=== PATIENT | male | born 1975 | race Caucasian/White ===

== ENCOUNTER 2016-06-17 19:01 | Inpatient (IN) | payer MEDICAID ==
[~2016-06-17 19:01] MED LIST: BUPIVACAIN-EPI 0.25%-1:200,000 30 ML VIAL SQ ONE; LACTATED RINGERS 1,000 ML IV ONE; SODIUM CHLORIDE 0.9% 1,000 ML IV ONE
[2016-06-17] MEDS ORDERED: KETOROLAC 30 MG/ML 1 ML VIAL IVP STA (20:14)
[2016-06-17] MEDS ORDERED: SODIUM CHLORIDE 0.9% 1,000 ML IV ONE (20:14)
--- NOTE | 2016-06-17 20:17 | ED ---
Abdominal Pain HPI - General Chief Complaint: Abdominal Pain Stated Complaint: abd pain Time Seen by Provider: 06/17/16 19:32 Source: patient, RN notes reviewed Mode of arrival: ambulatory Limitations: no limitations - History of Present Illness Initial Comments: Patient is a 41-year-old male presents to the emergency room for evaluation of abdominal pain. Patient states been having pain since this morning. Patient has been having on and off adilia flashes and chills. Patient denies any known fevers. Patient did have a low-grade fever on arrival. Patient states he has been taking ibuprofen with no relief of symptoms. Patient states pain is in his right lower quadrant. Patient states pain is worse when he moves. Patient also states noticed frequency in urination over the past few days. Patient denies blood in urine. Patient denies history kidney stones. Patient states he has a history of a lap band placed. Patient denies constipation or diarrhea. Patient states he had normal bowel movement this morning. Patient denies blood in stools or dark tarry stools. Patient states she's been nauseous but denies any vomiting. Patient denies chest pain or shortness of breath. Patient states he will occasionally feel dizzy when he has an episode of pain. - Related Data Home Medications Medication Instructions Recorded Confirmed Ibuprofen [Motrin] 600 mg PO Q6HR PRN 06/17/16 06/17/16 Simethicone [Gas-X] 125 mg PO ONCE PRN 06/17/16 06/17/16 Allergies Allergy/AdvReac Type Severity Reaction Status Date / Time No Known Allergies Allergy Verified 06/17/16 20:25 Review of Systems ROS Statement: Those systems with pertinent positive or pertinent negative responses have been documented in the HPI. ROS Other: All systems not noted in ROS Statement are negative. Past Medical History Past Medical History: Osteoarthritis (OA) Additional Past Medical History / Comment(s): adhd chronic hip pain History of Any Multi-Drug Resistant Organisms: None Reported Past Surgical History: Joint Replacement, Orthopedic Surgery Additional Past Surgical History / Comment(s): shoulder x3 radial shortening, ankle Past Psychological History: ADD/ADHD, Depression Smoking Status: Current every day smoker Past Alcohol Use History: None Reported Past Drug Use History: None Reported General Exam - General Exam Comments Initial Comments: Laying in exam room, no acute distress. Limitations: no limitations General appearance: alert, in no apparent distress Head exam: Present: atraumatic, normocephalic, normal inspection Eye exam: Present: normal appearance ENT exam: Present: normal exam Neck exam: Present: normal inspection Respiratory exam: Present: normal lung sounds bilaterally. Absent: respiratory distress Cardiovascular Exam: Present: regular rate, normal rhythm, normal heart sounds GI/Abdominal exam: Present: soft, tenderness (Right lower quadrant), normal bowel sounds. Absent: distended, guarding, rebound, rigid Extremities exam: Present: normal inspection Back exam: Present: normal inspection Neurological exam: Present: alert, oriented X3, CN II-XII intact, normal gait Psychiatric exam: Present: normal affect, normal mood Skin exam: Present: warm, dry, intact, normal color. Absent: rash Course Vital Signs 06/17/16 06/17/16 06/17/16 19:10 19:43 21:35 Temperature 100.9 F H 98.5 F Pulse Rate 72 93 84 Respiratory 18 18 18 Rate Blood Pressure 114/68 136/72 147/63 O2 Sat by Pulse 96 94 L 95 Oximetry 06/17/16 06/17/16 23:11 23:36 Temperature 98 F 98.3 F Pulse Rate 84 85 Respiratory 16 18 Rate Blood Pressure 147/63 128/79 O2 Sat by Pulse 99 95 Oximetry Medical Decision Making - Medical Decision Making Patient is a 41-year-old male presents emergency room for evaluation of abdominal pain. Patient's white count elevated. CT scan suggestive of acute appendicitis. Case discussed Dr. Hutchison. Dr. Hutchison discussed case with Dr. Woo. Patient will be sent to surgery for lap appendectomy tonight. Patient started on Zosyn. Plan discussed with patient. - Lab Data Result diagrams: 06/17/16 20:20 06/17/16 20:20 Lab Results 06/17/16 06/17/16 06/17/16 Range/Units 20:10 20:20 20:20 WBC 16.7 H (3.8-10.6) k/uL RBC 4.91 (4.30-5.90) m/uL Hgb 14.5 (13.0-17.5) gm/dL Hct 44.9 (39.0-53.0) % MCV 91.4 (80.0-100.0) fL MCH 29.5 (25.0-35.0) pg MCHC 32.3 (31.0-37.0) g/dL RDW 13.7 (11.5-15.5) % Plt Count 345 (150-450) k/uL Neutrophils % 83 % Lymphocytes % 9 % Monocytes % 5 % Eosinophils % 2 % Basophils % 0 % Neutrophils # 13.8 H (1.3-7.7) k/uL Lymphocytes # 1.5 (1.0-4.8) k/uL Monocytes # 0.8 (0-1.0) k/uL Eosinophils # 0.4 (0-0.7) k/uL Basophils # 0.1 (0-0.2) k/uL Sodium 137 (137-145) mmol/L Potassium 4.5 (3.5-5.1) mmol/L Chloride 106 (98-107) mmol/L Carbon Dioxide 23 (22-30) mmol/L Anion Gap 8 mmol/L BUN 18 (9-20) mg/dL Creatinine 0.98 (0.66-1.25) mg/dL Est GFR (MDRD) Af Amer >60 (>60 ml/min/1.73 sqM) Est GFR (MDRD) Non-Af >60 (>60 ml/min/1.73 sqM) Glucose 98 (74-99) mg/dL Calcium 8.9 (8.4-10.2) mg/dL Total Bilirubin 0.7 (0.2-1.3) mg/dL AST 20 (17-59) U/L ALT 20 L (21-72) U/L Alkaline Phosphatase 100 (38-126) U/L Total Protein 7.4 (6.3-8.2) g/dL Albumin 3.9 (3.5-5.0) g/dL Amylase 59 (30-110) U/L Lipase 49 (23-300) U/L Urine Color Yellow Urine Appearance Clear (Clear) Urine pH 6.5 (5.0-8.0) Ur Specific [place] 1.023 (1.001-1.035) Urine Protein Trace H (Negative) Urine Glucose (UA) Negative (Negative) Urine Ketones Negative (Negative) Urine Blood Trace H (Negative) Urine Nitrite Negative (Negative) Urine Bilirubin Negative (Negative) Urine Urobilinogen 2.0 (<2.0) mg/dL Ur Leukocyte Esterase Negative (Negative) Urine RBC 6 H (0-5) /hpf Urine WBC <1 (0-5) /hpf Urine Bacteria Rare H (None) /hpf Urine Mucus Rare H (None) /hpf - Radiology Data Radiology results: report reviewed, image reviewed Disposition Clinical Impression: Acute appendicitis Disposition: ADMITTED IP TO THIS [facility] Condition: Stable Decision Date: 06/17/16
[2016-06-17 20:24] LABS: Appearance,Urine Clear (Clear); Bacteria,Urine Rare /hpf; Bilirubin,Urine Negative (Negative); Glucose,Urine (UA) Negative (Negative); Ketones,Urine Negative (Negative); Leukocyte Esterase,Urine Negative (Negative); Mucus,Urine Rare /hpf; Nitrite,Urine Negative (Negative); PH, Urine 6.5 (5.0-8.0); Particle Count 1350; Protein,Urine Trace (Negative); RBC,Urine 6 /hpf (0-5); Specific Gravity,Urine 1.023 (1.001-1.035); UA Billing (MACRO vs. MICRO) MICRO; WBC,Urine <1 /hpf (0-5)
[2016-06-17 20:26] LABS: Basophils # (A) 0.1 k/uL (0-0.2); Basophils % (A) 0 %; CH 30.3; CHCM 33.3; Eosinophils # (A) 0.4 k/uL (0-0.7); Eosinophils % (A) 2 %; HCT 44.9 % (39.0-53.0); HDW 2.19; HGB 14.5 gm/dL (13.0-17.5); Luc # (Auto) 0.18; Luc % (Auto) 1; Lymphocytes # (A) 1.5 k/uL (1.0-4.8); Lymphocytes % (A) 9 %; MCH 29.5 pg (25.0-35.0); MCHC 32.3 g/dL (31.0-37.0); MCV 91.4 fL (80.0-100.0); Mean Platelet Volume 6.8; Monocytes # (A) 0.8 k/uL (0-1.0); Monocytes % (A) 5 %; Neutrophils # (A) 13.8 k/uL (1.3-7.7); Neutrophils % (A) 83 %; RBC 4.91 m/uL (4.30-5.90); RDW 13.7 % (11.5-15.5); WBC 16.7 k/uL (3.8-10.6); WBC (Perox) 17.03
--- NOTE | 2016-06-17 20:47 | XR ---
EXAMINATION TYPE: XR KUB DATE OF EXAM: 06/17/2016 8:40 PM COMPARISON: NONE HISTORY: Right lower quadrant pain TECHNIQUE: 2 views FINDINGS: There is no sign of intestinal obstruction or pneumoperitoneum. Fecal pattern is normal. Th ere is a sleeve around the gastric fundus. There are no pathologic calcifications over the kidneys. L august bases are clear. IMPRESSION: Bariatric surgery. Nonacute abdomen.
[2016-06-17 20:56] LABS: ALT 20 U/L (21-72); AST 20 U/L (17-59); Alkaline Phosphatase 100 U/L (38-126); Amylase 59 U/L (30-110); Anion Gap 8 mmol/L; Blood Urea Nitrogen 18 mg/dL (9-20); Calcium 8.9 mg/dL (8.4-10.2); Carbon Dioxide 23 mmol/L (22-30); Chloride 106 mmol/L (98-107); Glucose 98 mg/dL (74-99); Non-African American GFR(MDRD) >60 (>60 ml/min/1.73 sqM); Potassium 4.5 mmol/L (3.5-5.1); Sodium 137 mmol/L (137-145); Total Bilirubin 0.7 mg/dL (0.2-1.3); Total Protein 7.4 g/dL (6.3-8.2)
[2016-06-17] MEDS ORDERED: RX INFO: IV CONTRAST WAS GIVEN 1 EACH MISC MISCELLANE PRN (21:08)
--- NOTE | 2016-06-17 21:52 | CT ---
EXAMINATION TYPE: CT abdomen pelvis w con DATE OF EXAM: 06/17/2016 9:39 PM COMPARISON: NONE HISTORY: RLQ pain with nausea. CT DLP: 1915.8 mGycm Automated exposure control for dose reduction was used. TECHNIQUE: Helical acquisition of images was performed from the lung bases through the pelvis. CONTRAST: Performed without Oral Contrast and with IV Contrast, patient injected with 100 mL of Omnipaque 300. FINDINGS: There is mild linear density at the lung bases consistent with atelectasis. There is no pleural effus ion. There is bariatric surgery noted with a sleeve around the gastric fundus. Liver spleen pancreas gallbladder appear normal. Bile ducts are not dilated. There is no adrenal mass . There is a 3 cm cortical cyst on the lateral left kidney. There is no hydronephrosis. There is no r etroperitoneal adenopathy. There is some fat stranding in the right lower quadrant. There is thickeni ng of the appendix up to 1.5 cm. There is no discrete abscess seen. I see no intestinal wall thickening. Bladder distends smoothly. There is no ascites. Bony structures are intact. IMPRESSION: THICKENED APPENDIX WITH SURROUNDING INFLAMMATORY CHANGES RELATED TO ACUTE APPENDICITIS. NO ABSCESS SE EN. PATCHY ATELECTASIS AT THE LUNG BASES.
[2016-06-17] MEDS ORDERED: HYDROmorphone 1 MG/ML 1 ML SYRINGE IV PRN (22:40)
[2016-06-17] MEDS ORDERED: KETOROLAC 30 MG/ML 1 ML VIAL IVP PRN (22:40)
[2016-06-17] MEDS ORDERED: NALOXONE 0.4 MG/ML 1 ML VIAL IV PRN (22:40)
[2016-06-17] MEDS ORDERED: ONDANSETRON 4 MG/2 ML VIAL IVP PRN (22:40)
[2016-06-17] MEDS ORDERED: PIPERACILLIN-TAZOBACTAM 3.375 GM in DEXTROSE/WATER 1 50ML.BAG IVPB STA (22:41)
[2016-06-17] MEDS: SODIUM CHLORIDE 0.9% 1,000 ML IV SCH (23:11)
--- NOTE | 2016-06-17 23:45 | P.GSHP ---
History of Present Illness H&P Date: 06/17/16 Chief Complaint: Acute appendicitis 41 years old male presents with 1 day history of right lower quadrant pain starting this a.m. He reports loss of appetite. No nausea or vomiting. No fever, chills or rigors. Prior history of lap band placement. No recent adjustments. - Review of Systems Comment: HEENT: No difficulty in vision or hearing. Denies dysphagia. Cardiovascular: Denies chest pain, palpitations, dizziness, shortness of breath. Respiratory: No cough, SOB Genitourinary: No urinary incontinence, hematuria or dysuria Neurologic: No seizures, denies weakness in upper or lower extremities Past Medical History Past Medical History: Osteoarthritis (OA) Additional Past Medical History / Comment(s): adhd chronic hip pain History of Any Multi-Drug Resistant Organisms: None Reported Past Surgical History: Joint Replacement, Orthopedic Surgery Additional Past Surgical History / Comment(s): shoulder x3 radial shortening, ankle Past Psychological History: ADD/ADHD, Depression Smoking Status: Current every day smoker Past Alcohol Use History: None Reported Past Drug Use History: None Reported Medications and Allergies Home Medications Medication Instructions Recorded Confirmed Type Ibuprofen [Motrin] 600 mg PO Q6HR PRN 06/17/16 06/17/16 History Simethicone [Gas-X] 125 mg PO ONCE PRN 06/17/16 06/17/16 History Allergies Allergy/AdvReac Type Severity Reaction Status Date / Time No Known Allergies Allergy Verified 06/17/16 20:25 Surgical - Exam Vital Signs Temp Pulse Resp BP Pulse Ox 100.9 F H 72 18 114/68 96 06/17/16 19:10 06/17/16 19:10 06/17/16 19:10 06/17/16 19:10 06/17/16 19:10 General: Patient is alert and oriented to time, place and person and cooperative with exam. HEENT: No pallor, no icterus Chest: Bilateral equal breath sounds present. No wheezes, no crackles. Cardiovascular: Regular rate and rhythm. Abdomen: RLQ tenderness Integumentary: No active ulcers or discharge. Neurologic: Cranial nerves II-XII intact. Strength upper and lower extremities 5/5. No focal neurologic deficits. Psychiatric: No anxiety or psychosis. No suicidal thoughts. Results - Labs 06/17/16 20:20 06/17/16 20:20 Abnormal Lab Results - Last 24 Hours (Table) 06/17/16 06/17/16 06/17/16 Range/Units 20:10 20:20 20:20 WBC 16.7 H (3.8-10.6) k/uL Neutrophils # 13.8 H (1.3-7.7) k/uL ALT 20 L (21-72) U/L Urine Protein Trace H (Negative) Urine Blood Trace H (Negative) Urine RBC 6 H (0-5) /hpf Urine Bacteria Rare H (None) /hpf Urine Mucus Rare H (None) /hpf Diabetes panel 06/17/16 Range/Units 20:20 Sodium 137 (137-145) mmol/L Potassium 4.5 (3.5-5.1) mmol/L Chloride 106 (98-107) mmol/L Carbon Dioxide 23 (22-30) mmol/L BUN 18 (9-20) mg/dL Creatinine 0.98 (0.66-1.25) mg/dL Glucose 98 (74-99) mg/dL Calcium 8.9 (8.4-10.2) mg/dL AST 20 (17-59) U/L ALT 20 L (21-72) U/L Alkaline Phosphatase 100 (38-126) U/L Total Protein 7.4 (6.3-8.2) g/dL Albumin 3.9 (3.5-5.0) g/dL Calcium panel 06/17/16 Range/Units 20:20 Calcium 8.9 (8.4-10.2) mg/dL Albumin 3.9 (3.5-5.0) g/dL Pituitary panel 06/17/16 Range/Units 20:20 Sodium 137 (137-145) mmol/L Potassium 4.5 (3.5-5.1) mmol/L Chloride 106 (98-107) mmol/L Carbon Dioxide 23 (22-30) mmol/L BUN 18 (9-20) mg/dL Creatinine 0.98 (0.66-1.25) mg/dL Glucose 98 (74-99) mg/dL Calcium 8.9 (8.4-10.2) mg/dL Adrenal panel 06/17/16 Range/Units 20:20 Sodium 137 (137-145) mmol/L Potassium 4.5 (3.5-5.1) mmol/L Chloride 106 (98-107) mmol/L Carbon Dioxide 23 (22-30) mmol/L BUN 18 (9-20) mg/dL Creatinine 0.98 (0.66-1.25) mg/dL Glucose 98 (74-99) mg/dL Calcium 8.9 (8.4-10.2) mg/dL Total Bilirubin 0.7 (0.2-1.3) mg/dL AST 20 (17-59) U/L ALT 20 L (21-72) U/L Alkaline Phosphatase 100 (38-126) U/L Total Protein 7.4 (6.3-8.2) g/dL Albumin 3.9 (3.5-5.0) g/dL - Imaging CT scan - abdomen: other (Acute appendicitis) Assessment and Plan (1) History of laparoscopic adjustable gastric banding Status: Acute (2) Acute appendicitis Status: Acute (3) ADD (attention deficit disorder) Status: Acute Plan: 41 years old male presents with acute onset of right lower quadrant pain with leukocytosis and CT findings suggestive of acute appendicitis. Informed consent obtained and patient elected to undergo laparoscopic appendectomy possible open. The risks, benefits and potential complications explained including bleeding, infection, possible bowel resection and conversion to open. Patient has a lap band in place and there is is a higher chance of lap band infection which may need removal in future. Patient demonstrated understanding. He was examined in the ER and plan discussed with patient. IV antibiotics, bilateral SCDs, heparin 5000 units subcu tissues injectionx1
[2016-06-17] MEDS ORDERED: DEXAMETHASONE SOD PHOS (MDV) 100 MG/10 ML VIAL ONE (23:57)
[2016-06-17] MEDS ORDERED: ONDANSETRON 4 MG/2 ML VIAL ONE (23:57)
[2016-06-17] MEDS ORDERED: MIDAZOLAM 2 MG/2 ML VIAL ONE (23:57)
[2016-06-17] MEDS ORDERED: ROCURONIUM BROMIDE 10 MG/ML 10 ML VIAL IV ONE (23:57)
[2016-06-17] MEDS ORDERED: LIDOCAINE 1% INJ 10MG/ML (20 ML MDV) ONE (23:57)
[2016-06-17] MEDS ORDERED: PROPOFOL 10 MG/ML 20 ML VIAL IV ONE (23:57)
[2016-06-17] MEDS ORDERED: KETOROLAC 30 MG/ML 1 ML VIAL ONE (23:57)
[2016-06-17] MEDS ORDERED: fentaNYL (PF) 50 MCG/ML 2 ML AMP ONE (23:57)
[2016-06-17] MEDS ORDERED: SUCCINYLCHOLINE CHLORIDE 100 MG/5 ML SYR IV ONE (23:57)
[2016-06-17] MEDS ORDERED: GLYCOPYRROLATE 0.2 MG/ML 2 ML VIAL ONE (23:57)
[2016-06-17] MEDS ORDERED: NEOSTIGMINE 1 MG/ML 10 ML VIAL ONE (23:57)
--- NOTE | 2016-06-18 01:03 | P.OP ---
Date of Procedure: 06/18/16 Preoperative Diagnosis: Acute appendicitis Obesity BMI 35.4 History of lap band placement Postoperative Diagnosis: Same Procedure(s) Performed: Laparoscopic appendectomy Anesthesia: GLADYSA, local Surgeon: Naheed Woo Estimated Blood Loss (ml): 5 Condition: stable Disposition: PACU Indications for Procedure: 41 years old male presents with one-day history of right lower quadrant pain. Computed tomography scan shows acute appendicitis. WBC count 16,000. Informed consent obtained and patient elected to undergo laparoscopic appendectomy possible open Description of Procedure: The patient was brought to the operating room and placed in supine position with left arm tucked and a footboard was placed. General anesthesia with endotracheal intubation was performed as per anesthesia team. A Hernandez catheter was inserted under sterile aseptic precautions. Chlorhexidine was used to prep the abdomen followed by application of sterile drapes. A timeout was performed to verify correct patient and correct procedure. Patient was confirmed to receive perioperative IV antibiotics, subcutaneous heparin for VTE prophylaxis and bilateral SCDs were placed. A 5 mm skin incision was made in the left anterior axillary line and a Veress needle was inserted into the peritoneal cavity and CO2 insufflated to a pressure of 15 mmHg. A 5 mm Optiview trocar was loaded on a 5 mm 30 laparoscope and peritoneal cavity was entered under direct vision. An additional 5 mm trocar was placed in the suprapubic location in midline and a 12 mm trocar in the supraumbilical location. Patient was placed in Trendelenburg with right side up. The lap band was covered in omentum. The appendix was identified. It appeared enlarged and inflamed There were fibrinopurulent exudates in the right lower quadrant. The appendix was grasped using a laparoscopic Kendra instrument. A suction irrigation device was used to gently dissecting appendix from the surrounding tissue. All the fibrinous exudates were removed. A window was made in the mesoappendix close to the cecal base using a [place] dissector. Laparoscopic Ligasure was used to divide the mesoappendix. No bleeding noted from the mesoappendiceal stump. The appendix was divided at its base, at the confluence of three tenia using Ethicon stapler 45 blue load. The staple line was intact without evidence of bleeding. The appendix was placed in an endocatch bag and was retrieved through the supraumbilical port site. All the trocar sites were examined and no evidence of bleeding. The 12 mm trocar site was closed using three transfascial sutures of 0 Vicryl which were placed using a Ampere device. Local anesthetic was infiltrated along all the ports sites. The sponge, instrument and needle count were correct x2. CO2 gas was evacuated and trocars were removed. 4-0 Monocryl was used to close the skin incisions followed by Dermabond skin glue. Hernandez catheter was discontinued. Patient tolerated the procedure well and was taken to post anesthesia care unit in stable condition.
[2016-06-18 02:12] VITALS: TEMP 98.3; BMI 35.4
[2016-06-18 07:19] LABS: Basophils % (A) 0 %; CH 29.7; CHCM 32.3; Eosinophils % (A) 0 %; HCT 41.6 % (39.0-53.0); HDW 2.17; HGB 13.6 gm/dL (13.0-17.5); Luc # (Auto) 0.06; Luc % (Auto) 0; Lymphocytes # (A) 0.8 k/uL (1.0-4.8); Lymphocytes % (A) 5 %; MCH 30.2 pg (25.0-35.0); MCHC 32.7 g/dL (31.0-37.0); MCV 92.4 fL (80.0-100.0); Mean Platelet Volume 6.8; Monocytes # (A) 0.2 k/uL (0-1.0); Monocytes % (A) 1 %; Neutrophils # (A) 15.5 k/uL (1.3-7.7); Neutrophils % (A) 94 %; RDW 13.5 % (11.5-15.5); WBC 16.5 k/uL (3.8-10.6); WBC (Perox) 17.26
[2016-06-18] MEDS ORDERED: HEPARIN SODIUM,PORCINE 5,000 UNIT/ML 1 ML VIAL SQ SCH (08:00)
[2016-06-18] MEDS ORDERED: PIPERACILLIN-TAZOBACTAM 3.375 GM in DEXTROSE/WATER 1 50ML.BAG IVPB SCH (08:00)
[2016-06-18 08:15] VITALS: BP 122/65; PULSE 89; RESP 16
[2016-06-18] MEDS ORDERED: NICOTINE 21MG/24HR PATCH TRANSDERM SCH (09:00)
[2016-06-18] MEDS: SODIUM CHLORIDE 0.9% 1,000 ML IV SCH (09:48)
--- NOTE | 2016-06-18 11:44 | P.DS ---
Providers Date of admission: 06/17/16 22:42 Expected date of discharge: 06/18/16 Attending physician: Naheed Woo Primary care physician: Stated None Hospital Course: 41 years old male presents with 1 day history of right lower quadrant pain starting this a.m. He reports loss of appetite. No nausea or vomiting. No fever, chills or rigors. Prior history of lap band placement. No recent adjustments. The surgeon to discuss with the patient the surgical option patient elected to undergo Laparoscopic appendectomy done on June 18 Postop the patient tolerated a diet there were no postop complications patient was felt to be hemodynamically stable and appropriate to proceed with a discharge to home Impression discharge diagnosis Present on admission right lower quadrant pain likely due to acute appendicitis Obesity BMI 35 Postop laparoscopic appendectomy done on June 17 History of a prior lap band placement for morbid obesity The above dictated assessment and findings were discussed with dr tom Felix and the plan of care have been dictated as directed. [place] Hooper nurse practitioner acting as a scribe for dr glynn Patient Condition at Discharge: Stable Plan - Discharge Summary Discharge Medication List Ibuprofen [Motrin] 600 mg PO Q6HR PRN 06/17/16 [History] Simethicone [Gas-X] 125 mg PO ONCE PRN 06/17/16 [History] Follow up Appointment(s)/Referral(s): None,Stated [Primary Care Provider] - 1-2 days Naheed Woo MD [STAFF PHYSICIAN] - 06/25/16 Activity/Diet/Wound Care/Special Instructions: Patient may return to work after being seen in the surgeon's office and a follow -up visit May shower No lifting over 4 pounds Discharge Disposition: HOME SELF-CARE
[2016-06-18] MEDS ORDERED: IBUPROFEN 600 MG TAB PO STA (12:40)
== END 2016-06-18 14:27 | disposition home or self-care (01) | DRG 343 ==
LOC: EC 19:01 → 3SUR 22:42 → EC 23:39
PROVIDERS: ADMIT Surgery; ATTEND Surgery
PROC: 0DTJ4ZZ Resection of Appendix, Percutaneous Endoscopic Approach (ICD-10-PCS; principal; 2016-06-17 23:25)
DX: K35.80 Unspecified acute appendicitis (principal); F32.9 Major depressive disorder, single episode, unspecified; D72.829 Elevated white blood cell count, unspecified; R42 Dizziness and giddiness; M19.90 Unspecified osteoarthritis, unspecified site; G89.29 Other chronic pain; R35.0 Frequency of micturition; M25.559 Pain in unspecified hip; F17.200 Nicotine dependence, unspecified, uncomplicated; E66.9 Obesity, unspecified; F90.9 Attention-deficit hyperactivity disorder, unspecified type; Z68.35 Body mass index [BMI] 35.0-35.9, adult; Z98.84 Bariatric surgery status
CPT/HCPCS: 36415; 74000; 74177; 80053; 81001; 82150; 83690; 85025; 88304; 96361; 96365; 96375; 99285

== ENCOUNTER 2016-08-14 10:52 | Emergency (ER) | payer MEDICAID ==
[2016-08-14 11:05] VITALS: RESP 16; TEMP 98.9
--- NOTE | 2016-08-14 11:29 | ED ---
General Adult HPI - General Chief complaint: Extremity Injury, Upper Stated complaint: left elbow swelling Time Seen by Provider: 08/14/16 11:23 Source: patient, RN notes reviewed Mode of arrival: ambulatory Limitations: no limitations - History of Present Illness Initial comments: Patient is a pleasant 41-year-old male presenting to the emergency Department with left elbow pain. Incident occurred 2 days ago. Patient excellently struck his left elbow on a wall. Patient has had some swelling. Patient does have some discomfort that does increase with movement. Patient did have similar symptoms previously and needed to have elbow drained. Patient points at the left bursa. No other area of injury or concern. Tetanus immunization is up-to-date. - Related Data Home Medications Medication Instructions Recorded Confirmed Dextroamphetamine/Amphetamine 40 mg PO QAM 08/14/16 08/14/16 [Adderall Xr] fluvoxaMINE [Luvox] 300 mg PO DAILY 08/14/16 08/14/16 Allergies Allergy/AdvReac Type Severity Reaction Status Date / Time No Known Allergies Allergy Verified 08/14/16 11:23 Review of Systems ROS Statement: Those systems with pertinent positive or pertinent negative responses have been documented in the HPI. ROS Other: All systems not noted in ROS Statement are negative. Constitutional: Denies: fever Eyes: Denies: eye pain ENT: Denies: ear pain Respiratory: Denies: cough Cardiovascular: Denies: chest pain Endocrine: Denies: fatigue Gastrointestinal: Denies: abdominal pain Genitourinary: Denies: dysuria Musculoskeletal: Denies: back pain Skin: Denies: rash Neurological: Denies: weakness Past Medical History Past Medical History: Osteoarthritis (OA) Additional Past Medical History / Comment(s): adhd chronic hip pain History of Any Multi-Drug Resistant Organisms: None Reported Past Surgical History: Joint Replacement, Orthopedic Surgery Additional Past Surgical History / Comment(s): shoulder x3 radial shortening, ankle Past Psychological History: ADD/ADHD, Depression Smoking Status: Current every day smoker Past Alcohol Use History: None Reported Past Drug Use History: None Reported General Exam Limitations: no limitations General appearance: alert, in no apparent distress Head exam: Present: atraumatic Respiratory exam: Present: normal lung sounds bilaterally Cardiovascular Exam: Present: regular rate, normal rhythm GI/Abdominal exam: Present: soft. Absent: tenderness Extremities exam: Present: tenderness (Mild bony tenderness left elbow.), other (There is a prominent left bursa pad on the left with not much tenderness. Minimal swelling. ) Neurological exam: Present: alert Psychiatric exam: Present: normal affect, normal mood Skin exam: Present: abrasion (Mild abrasion left posterior) Course Vital Signs 08/14/16 11:01 Temperature 98.9 F Pulse Rate 101 H Respiratory 16 Rate Blood Pressure 155/86 O2 Sat by Pulse 97 Oximetry Medical Decision Making - Medical Decision Making Patient reevaluated and updated. - Radiology Data Radiology results: image reviewed (Left elbow x-ray shows mild swelling at the olecranon soft tissue) Disposition Clinical Impression: Olecranon bursitis Disposition: HOME SELF-CARE Condition: Stable Instructions: Elbow Bursitis (ED) Additional Instructions: Keep elbow wrapped, ice to affected area, [id number] Motrin as needed. Follow-up with orthopedics. Return for increased pain, swelling, redness, fever , worsening symptoms or other concerns. Referrals: Josue Collazo MD [STAFF PHYSICIAN] - 1-2 days Mike Jesus III, MD [STAFF PHYSICIAN] - 1-2 days Time of Disposition: 12:08
--- NOTE | 2016-08-14 11:49 | XR ---
EXAMINATION TYPE: XR elbow complete LT DATE OF EXAM: 08/14/2016 COMPARISON: NONE HISTORY: 41-year-old male with pain and swelling after elbow injury. TECHNIQUE: 3 views FINDINGS: There is soft tissue swelling overlying the olecranon process. No elbow joint effusion or acute fract ure or dislocation seen. IMPRESSION: Olecranon soft tissue swelling. No acute osseous abnormality seen.
[2016-08-14 12:27] VITALS: BP 157/100; PULSE 86
== END 2016-08-14 12:26 | disposition home or self-care (01) ==
LOC: EC 10:52
DX: M70.22 Olecranon bursitis, left elbow (principal); F90.9 Attention-deficit hyperactivity disorder, unspecified type; F32.9 Major depressive disorder, single episode, unspecified; F17.200 Nicotine dependence, unspecified, uncomplicated; Z79.899 Other long term (current) drug therapy; W22.01XA Walked into wall, initial encounter; Y93.89 Activity, other specified
CPT/HCPCS: 99283

== ENCOUNTER → 2018-05-26 | Outpatient (CLI) | payer BC ==
[2018-05-26 12:44] LABS: Basophils # (A) 0.1 k/uL (0-0.2); Basophils % (A) 1 %; Eosinophils # (A) 0.2 k/uL (0-0.7); Eosinophils % (A) 2 %; HGB 14.3 gm/dL (13.0-17.5); Lymphocytes # (A) 2.1 k/uL (1.0-4.8); Lymphocytes % (A) 18 %; MCH 28.7 pg (25.0-35.0); MCHC 32.5 g/dL (31.0-37.0); MCV 88.3 fL (80.0-100.0); Mean Platelet Volume 6.9; Monocytes # (A) 0.5 k/uL (0-1.0); Monocytes % (A) 4 %; Neutrophils # (A) 8.7 k/uL (1.3-7.7); Neutrophils % (A) 74 %; Platelet Count 503 k/uL (150-450); RBC 4.98 m/uL (4.30-5.90); RDW 13.8 % (11.5-15.5); WBC 11.8 k/uL (3.8-10.6)
[2018-05-26 13:15] LABS: Potassium 4.6 mmol/L (3.5-5.1)
== END ==
LOC: LABPAT 11:43
PROVIDERS: ATTEND Orthopaedic Surgery
DX: Z01.818 Encounter for other preprocedural examination (principal); Z01.812 Encounter for preprocedural laboratory examination; M75.41 Impingement syndrome of right shoulder
CPT/HCPCS: 36415; 80051; 85025; 93005

== ENCOUNTER 2018-06-15 07:32 | Day surgery (SDC) | payer BC, MEDICAID ==
[2018-06-13 12:21] VITALS: BMI 37.0
--- NOTE | 2018-06-14 13:45 | HP ---
HISTORY AND PHYSICAL Surgery is 06/15/2018. Skip Patiño is a 43-year-old patient seen with progressive right shoulder pain. Treatment options were discussed with him. He elected to proceed with arthroscopy. Consent regarding the procedure was obtained. PAST MEDICAL HISTORY: His past medical history is attention deficit disorder. PAST SURGICAL HISTORY: Ankle surgery, appendectomy, gastric bypass surgery, shoulder arthroscopy. DAILY MEDICATIONS: Adderall. ALLERGIES: None. SOCIAL HISTORY: Denies current tobacco use. PHYSICAL EXAMINATION: Physical evaluation of the right shoulder: Flexion 40 degrees, abduction 30 degrees, external rotation is 50 degrees with pain and weakness. Tenderness along the anterior lateral acromion and rotator cuff insertion site. Impingement sign positive at 90 degrees. Drop-arm sign positive. Distal neurovascular exam is intact. Right shoulder radiographs revealed a type 2 anterior acromion, acromioclavicular joint osteoarthritis. There is evidence for metallic within the humeral head. IMPRESSION: 1. Right shoulder impingement with probable rotator cuff tear. 2. Right shoulder acromioclavicular joint osteoarthritis. PLAN: Right shoulder arthroscopy with subacromial decompression, possible arthroscopic rotator cuff repair, probable Omega procedure and debridement. MMODL / IJN: [id number] /
[~2018-06-15 07:32] MED LIST changes: -BUPIVACAIN-EPI 0.25%-1:200,000 30 ML VIAL SQ ONE; +DEXAMETHASONE SOD PHOSPHATE 10 MG/ML 1 ML VIAL IV ONE; +HYDROmorphone 0.5 MG/0.5 ML SYRINGE IVP PRN; -LACTATED RINGERS 1,000 ML IV ONE; +LIDOCAINE 1% 20 ML VIAL (10MG/ML) FOR IV START INTRADERMA PRN; +MIDAZOLAM (PF) 2 MG/2 ML VIAL IV PRN; +ONDANSETRON 4 MG/2 ML VIAL IVP ONE; +SCOPOLAMINE 1.5MG/72HR PATCH TRANSDERM ONE; -SODIUM CHLORIDE 0.9% 1,000 ML IV ONE
[2018-06-15] MEDS ORDERED: fentaNYL (PF) 50 MCG/ML 2 ML AMP IVP ONE (08:15)
[2018-06-15] MEDS: LACTATED RINGERS 1,000 ML IV SCH ×2 (08:31→09:20)
--- NOTE | 2018-06-15 09:02 | P.ONQ ---
Anesthesiology Proc Note - PNB - Peripheral Nerve Block Performed Right Interscalene Single Time Out Performed: Yes Procedure Start Time: 08:15 Indication: Acute Post-Operative Pain Specifically requested for management of pain by DrSandra: Bin Russell Sedation Type: Sedate with meaningful contact maintained Preparation: Sterile Prep Position: Supine Catheter: None Needle Types: Other (see comment) (PAJUNK) Needle Size: 50mm (2") Needle Gauge: 21 Technique: Ultrasound Injectate: 0.5% Ropivacaine (see comment for volume) (20) Blood Aspirated: No Pain Paresthesia on Injection Noted: No Resistance on Injection: Normal Events: Uneventful and Well Tolerated
[2018-06-15] MEDS ORDERED: LIDOCAINE 2%-EPI 1:100,000 20 ML VIAL ONE (09:21)
[2018-06-15] MEDS ORDERED: HYDROmorphone (PF) 1 MG/ML ONE (09:21)
[2018-06-15] MEDS ORDERED: fentaNYL (PF) 50 MCG/ML 2 ML AMP ONE (09:21)
[2018-06-15] MEDS ORDERED: MIDAZOLAM 2 MG/2 ML VIAL ONE (09:21)
[2018-06-15] MEDS ORDERED: GLYCOPYRROLATE 0.2 MG/ML 2 ML VIAL ONE (09:21)
[2018-06-15] MEDS ORDERED: ROCURONIUM BROMIDE 10 MG/ML 10 ML VIAL IV ONE (09:21)
[2018-06-15] MEDS ORDERED: NEOSTIGMINE 1 MG/ML 10 ML VIAL ONE (09:21)
[2018-06-15] MEDS: ceFAZolin IN SWFI 2 GM/20 ML SYRINGE IVP ONE ×2 (09:21→09:45)
[2018-06-15] MEDS ORDERED: ePHEDrine SULFATE/0.9% NACL/PF 50 MG/5 ML SYRINGE IV ONE (09:21)
[2018-06-15] MEDS ORDERED: SUCCINYLCHOLINE CHLORIDE 100 MG/5 ML SYR IV ONE (09:21)
[2018-06-15] MEDS ORDERED: PROPOFOL 10 MG/ML 20 ML VIAL IV ONE (09:21)
[2018-06-15] MEDS ORDERED: ROPIVACAINE 5 MG/ML 30 ML VIAL ONE (09:21)
[2018-06-15] MEDS ORDERED: LACTATED RINGERS 1,000 ML IV ONE ×3 (10:10→11:12)
--- NOTE | 2018-06-15 11:25 | P.OP ---
Date of Procedure: 06/15/18 Preoperative Diagnosis: Right shoulder impingement Postoperative Diagnosis: 1. Right shoulder rotator cuff tear 2. Right shoulder impingement 3. Right shoulder acromioclavicular joint osteoarthritis 4. Right shoulder partial long head biceps tendon tear 5. Right shoulder superficial labral tear Procedure(s) Performed: 1. Right shoulder arthroscopic rotator cuff repair 2. Right shoulder arthroscopic subacromial decompression 3. Right shoulder arthroscopic Omega procedure 4. Right shoulder arthroscopic biceps tenotomy 5. Right shoulder arthroscopic debridement labral tear Implants: 4Arthrex swivel lock anchors Anesthesia: GETA, regional (Interscalene block) Surgeon: Bin Russell Pipeline Superintendent #1: Khurram Coley Estimated Blood Loss (ml): 9 Pathology: none sent Condition: stable Disposition: PACU Indications for Procedure: 43-year-old patient seen with progressive right shoulder pain. After having treatment options discussed, he elected to proceed with arthroscopy. Operative Findings: See description of procedure Description of Procedure: Patient underwent an interscalene block by department of anesthesia for postoperative pain management. The patient was then taken to the operative suite. The patient underwent a general anesthetic by the department of anesthesia. The patient was placed into a lateral position and secured. There was appropriate padding of the bony prominence. Right shoulder was then prepped and draped in normal sterile orthopedic fashion. We placed the extremity in 10 pounds of longitudinal traction. A posterior incision was now made for a posterior working portal site. The trocar and cannula were inserted into the glenohumeral joint. Arthroscopy was initiated. Spinal needle was now inserted anteriorly, to ascertain the anterior working portal site. An incision was now made in that area, a trocar was inserted followed by a probe. There was superficial tearing of the superior labrum. There was hyperemia and partial tearing long head biceps tendon. There were grade 1 chondromalacia changes of the anterior portion of the glenoid fossa. There was an obvious rotator cuff tear we could visualize from glenohumeral side. I performed an arthroscopic biceps tenotomy. I debrided the superficial labral tear down to stable tissue. The residual labrum was found to be stable. Instruments were now removed from the glenohumeral joint. Utilizing the posterior working portal site, the trocar and cannula were inserted into the subacromial space. Arthroscopy initiated. I made an incision 2 fingerbreadths lateral to the acromion. I introduced my trocar followed by my ArthroCare ablator. I now began ablating thick subacromial bursal tissue, which exposed the undersurface of the anterior acromion. There was diminished subacromial space. There was a very prominent anterior acromion. A motorized bur was introduced and a subacromial decompression was performed. I also excised some osteophytes off the inferior aspect of the distal clavicle. The AC joint was visualized and noted to be fairly arthritic. The motorized bur was introduced in the anterior portal site and a Omega procedure was performed without difficulty, decompressing the AC joint nicely. I turned my attention to the rotator cuff. There was a 2.5 cm rotator cuff tear. I debrided the margins getting down to stable tendon tissue. I introduced my motorized bur and abraded the footprint area, getting some petechial bleeding. I now made an accessory portal site off the lateral aspect of the acromion. I punched [] holes medial f or medial row fixation with the assistance of Danny VALLES carefully tapping the punch with a mallet as I held the punch and the camera. I now introduced both anchors into the pre-punched holes and Danny VALLES tapped them with the mallet as I held anchors and the camera. Danny VALLES now screwed the anchors in place a while I held the anchor guide and camera. All 8 limbs of suture were now passed through good bites of rotator cuff tendon. I now punched 2 holes for lateral row fixation again I held the punch and camera while Danny VALLES used a mallet to tap in the punch. We now passed sutures through both anchors and individually I introduced the anchors into the pre-punch holes I held the anchor guide in position with one hand holding the camera with the other hand while Danny VALLES tensioned the sutures and screwed in the anchors one at a time. All residual suture limbs were now clipped. We had good compression of the tendon along the entire footprint. I injected 1 mL Renue intra-articular. Instruments now removed from the portal sites. All portal sites were approximated with nylon suture. Sterile dressings were applied followed by a shoulder immobilizer. Khurram VALLES assisted in this complex case. The patient was awakened, transferred to a bed, and taken to recovery in stable condition.
[2018-06-15 11:29] VITALS: TEMP 97.2
[2018-06-15] MEDS ORDERED: MEPERIDINE 50 MG/ML SYRINGE IVP ONE (11:33)
[2018-06-15 12:19] VITALS: BP 150/96; PULSE 93; RESP 18
== END 2018-06-15 13:14 | disposition home or self-care (01) ==
LOC: OR 07:32
PROVIDERS: ATTEND Orthopaedic Surgery
DX: M75.101 Unspecified rotator cuff tear or rupture of right shoulder, not specified as traumatic (principal); M75.41 Impingement syndrome of right shoulder; M19.011 Primary osteoarthritis, right shoulder; S46.111A Strain of muscle, fascia and tendon of long head of biceps, right arm, initial encounter; S43.431A Superior glenoid labrum lesion of right shoulder, initial encounter; X58.XXXA Exposure to other specified factors, initial encounter; M94.211 Chondromalacia, right shoulder; M25.711 Osteophyte, right shoulder; Z98.890 Other specified postprocedural states; F98.8 Other specified behavioral and emotional disorders with onset usually occurring in childhood and adolescence; Z98.84 Bariatric surgery status; Z87.891 Personal history of nicotine dependence; F39 Unspecified mood [affective] disorder; K21.9 Gastro-esophageal reflux disease without esophagitis; Z79.899 Other long term (current) drug therapy
CPT/HCPCS: 64415; 29826; 29827; 29824; C1713 ×2; C1765; J2250 ×2; J1100; J2710; J2175; J2405; J3010; J1170; J2795; J0330; J2704; J0690

== ENCOUNTER 2020-12-30 07:37 | Emergency (ER) | payer BC, OTHER ==
[2020-12-30 07:48] VITALS: BP 162/99; PULSE 62; RESP 18; TEMP 98
[2020-12-30] MEDS ORDERED: KETOROLAC 15 MG/ML 1 ML VIAL IM STA (08:10)
--- NOTE | 2020-12-30 08:14 | ED ---
General Adult HPI - General Chief complaint: Back Pain/Injury Stated complaint: back pain Time Seen by Provider: 12/30/20 07:50 Source: patient, old records reviewed Mode of arrival: ambulatory Limitations: no limitations - History of Present Illness Initial comments: 45-year-old male presents to the emergency room for mid back pain. Patient states he has had mid back pain for 5 days now. Patient reports he has had this pain several times before. States it comes every few years. Patient states that he usually gets a Toradol shot and it helps significantly. Patient denies any chest pain. States this pain feels exactly the same to previous exacerbations. Patient states movement worsens the pain.Patient has no other complaints at this time including shortness of breath, chest pain, abdominal pain, nausea or vomiting, headache, or visual changes. - Related Data Home Medications Medication Instructions Recorded Confirmed Dextroamphetamine/Amphetamine 60 mg PO QAM 08/14/16 06/15/18 [Adderall Xr] fluvoxaMINE [Luvox] 300 mg PO DAILY 08/14/16 06/15/18 Previous Rx's Medication Instructions Recorded HYDROcodone/APAP 7.5-325MG [[place] 1 - 2 each PO Q6HR PRN #40 tab 06/15/18 7.5] Cyclobenzaprine [Flexeril] 10 mg PO TID #14 tab 12/30/20 Allergies Allergy/AdvReac Type Severity Reaction Status Date / Time No Known Allergies Allergy Verified 12/30/20 07:44 Review of Systems ROS Statement: Those systems with pertinent positive or pertinent negative responses have been documented in the HPI. ROS Other: All systems not noted in ROS Statement are negative. Past Medical History Past Medical History: Osteoarthritis (OA) Additional Past Medical History / Comment(s): adhd chronic hip pain , back pain History of Any Multi-Drug Resistant Organisms: None Reported Past Surgical History: Appendectomy, Joint Replacement, Orthopedic Surgery Additional Past Surgical History / Comment(s): shoulder x4 radial shortening, ankle Past Psychological History: ADD/ADHD, Depression Smoking Status: Never smoker Past Alcohol Use History: None Reported Past Drug Use History: Marijuana General Exam Limitations: no limitations General appearance: alert, in no apparent distress Head exam: Present: atraumatic Eye exam: Present: normal appearance, PERRL, EOMI. Absent: scleral icterus, conjunctival injection ENT exam: Present: normal exam, mucous membranes moist Neck exam: Present: normal inspection, full ROM. Absent: tenderness Respiratory exam: Present: normal lung sounds bilaterally. Absent: respiratory distress, wheezes Cardiovascular Exam: Present: regular rate, normal rhythm, normal heart sounds GI/Abdominal exam: Present: soft, normal bowel sounds. Absent: distended, ten derness Extremities exam: Present: normal capillary refill (Radial pulse 2+ in upper extremities bilaterally) Back exam: Present: paraspinal tenderness (Lower thoracic and upper lumbar paraspinal tenderness). Absent: vertebral tenderness Neurological exam: Present: alert Course Vital Signs 12/30/20 07:44 Temperature 98 F Pulse Rate 62 Respiratory 18 Rate Blood Pressure 162/99 O2 Sat by Pulse 99 Oximetry Medical Decision Making - Medical Decision Making Nose are stable. Patient is well-appearing. He does have some mild paraspinal tenderness. Pain is worsened with movement. However given pain is in the mid back I did recommend further workup the CAT scan. However patient states he has had this pain before. States he does not want to pay for any extra treatment and does not feel this is necessary. States he just wants a Toradol shot. Patient was given this. He was prescribed Flexeril as well. He will follow up with his doctor. He will return here for any worsening symptoms. Disposition Clinical Impression: Back pain Disposition: HOME SELF-CARE Condition: Good Instructions (If sedation given, give patient instructions): Acute Low Back Pain (ED) Additional Instructions: Take Motrin and Tylenol for pain. Take Flexeril as needed but do not drive while taking this. Follow-up with your doctor or orthopedics. Return to the emergency room for any worsening symptoms. Prescriptions: Cyclobenzaprine [Flexeril] 10 mg PO TID #14 tab Is patient prescribed a controlled substance at d/c from ED?: No Referrals: Nonstaff,Physician [Primary Care Provider] - 1-2 days Jose Alejandro Perea MD [STAFF PHYSICIAN] - 1-2 days Time of Disposition: 08:13
[2020-12-30] MEDS ORDERED: KETOROLAC 30 MG/ML 1 ML VIAL IM STA ×2 (08:21→08:24)
== END 2020-12-30 08:32 | disposition home or self-care (01) ==
LOC: EC 07:37
DX: M54.6 Pain in thoracic spine (principal); F90.9 Attention-deficit hyperactivity disorder, unspecified type; Z79.899 Other long term (current) drug therapy
CPT/HCPCS: 99283; 96372; J1885

== ENCOUNTER → 2021-03-26 | Outpatient (CLI) | payer OTHER ==
[2021-03-26 19:19] LABS: Basophils # (A) 0.07 X 10*3/uL (0.00-0.10); Basophils % (A) 0.6 %; Eosinophils % (A) 1.7 %; HCT 45.9 % (39.6-50.0); HGB 14.7 g/dL (13.0-17.0); Immature Grans, Automated 0.4 %; Lymphocytes # (A) 2.07 X 10*3/uL (0.90-5.00); Lymphocytes % (A) 17.1 %; MCH 30.3 pg (27.0-32.0); MCV 94.6 fL (80.0-97.0); Mean Platelet Volume 10.2 fL (9.5-12.2); Monocytes % (A) 6.6 %; NRBC Per 100 WBC 0 /100 WBCS (0.0-0.0); Neutrophils # (A) 8.89 X 10*3/uL (1.80-7.70); Neutrophils % (A) 73.6 %; Platelet Count 399 X 10*3/uL (140-440); RBC 4.85 X 10*6/uL (4.40-5.60); RDW 13.1 % (11.5-14.5); WBC 12.08 X 10*3/uL (4.50-10.00)
[2021-03-26 19:45] LABS: ALT 15 U/L (10-49); AST 17 U/L (14-35); African American GFR (CKD) 93.2 (60.0-200.0); Albumin 4.4 g/dL (3.8-4.9); Albumin/Globulin Ratio 1.79 (1.60-3.17); Alkaline Phosphatase 149 U/L (41-126); BUN/Creat Ratio 13.85 Ratio (12.00-20.00); Blood Urea Nitrogen 15.1 mg/dL (9.0-27.0); Calcium 9.4 mg/dL (8.7-10.3); Carbon Dioxide 25.5 mmol/L (20.0-27.5); Chloride 102 mmol/L (96-109); Chol/HDL Ratio 3.67 Ratio; Globulin 2.5 g/dL (1.6-3.3); Glucose 88 mg/dL (70-110); LDL Cholesterol,Calculated 81.1 mg/dL (0.0-131.0); Non-African American GFR(CKD) 80.4 (60.0-200.0); Potassium 4.6 mmol/L (3.5-5.5); Sodium 140 mmol/L (135-145); Total Protein 6.9 g/dL (6.2-8.2); VLDL Calculation 11.26 mg/dL (5.00-40.00)
== END | disposition home or self-care (01) ==
LOC: LABWHC1 12:09
PROVIDERS: ATTEND Family Medicine
DX: E78.5 Hyperlipidemia, unspecified (principal); M25.511 Pain in right shoulder; M25.521 Pain in right elbow; F42.9 Obsessive-compulsive disorder, unspecified; R59.9 Enlarged lymph nodes, unspecified
CPT/HCPCS: 36415; 80053; 80061; 84443; 85025

== ENCOUNTER → 2021-03-27 | Outpatient (CLI) | payer OTHER ==
--- NOTE | 2021-03-27 14:26 | US ---
EXAMINATION TYPE: US axilla RT DATE OF EXAM: 03/27/2021 COMPARISON: NONE CLINICAL HISTORY: 46-year-old male R59.9. Right lateral flank/chest palpable area x couple months TECHNIQUE AND FINDINGS: Supervisory Aide notes: Right flank: 2.1 x 0.9 x 2.2cm solid isoechoic non vascular area seen This is oval and circumscribed and located within the subcutaneous adipose layer. IMPRESSION: An oval 2.2 cm isoechoic lesion located in the subcutaneous adipose layer of the right flank. Imaging findings suggest a subcutaneous lipoma. Clinically correlate. If symptomatic or if growth is noted, consider excision. Otherwise, a six-month follow-up ultrasound can ensure stability.
== END | disposition home or self-care (01) ==
LOC: RADUSWWP 12:37
PROVIDERS: ATTEND Family Medicine
DX: M79.89 Other specified soft tissue disorders (principal)

== ENCOUNTER → 2022-01-06 | Outpatient (CLI) | payer OTHER ==
--- NOTE | 2022-01-06 17:00 | XR ---
EXAMINATION TYPE: XR lumbosacral spine min 4V DATE OF EXAM: 01/06/2022 COMPARISON: None HISTORY: Low back pain TECHNIQUE: 5V lumbar spine FINDINGS: There are 6 lumbar type vertebral bodies. Plain film correlation recommended prior to surgi adrian intervention. Pedicles are intact. Mild side bending towards the left is evident. Mild facet dege nerative changes are present. No spondylolytic defects are evident. Spondylolysis spondylosis within the upper lumbar spine may be present. Some degenerative disc changes present at the lower 2 lumbar l evels. IMPRESSION: 1. Degenerative disc change lower lumbar spine. Additional evaluation with MRI can be performed as c linically indicated.
== END | disposition home or self-care (01) ==
LOC: RADXRMAIN 12:04
PROVIDERS: ATTEND Family Medicine
DX: M51.36 Other intervertebral disc degeneration, lumbar region (principal)
CPT/HCPCS: 72110

== ENCOUNTER → 2022-07-21 | Outpatient (CLI) | payer OTHER ==
--- NOTE | 2022-07-21 15:50 | US ---
EXAMINATION TYPE: US carotid duplex BILAT DATE OF EXAM: 07/21/2022 COMPARISON: NONE CLINICAL INDICATION: Male, 47 years old with history of R42 Dizziness; Dizzy TECHNIQUE: Carotid duplex ultrasound examination. Indirect Doppler criteria was utilized. FINDINGS: EXAM MEASUREMENTS: RIGHT: Peak Systolic Velocity (PSV) cm/sec ----- Right CCA: 163 ----- Right ICA: 122 ----- Right ECA: 163 ICA/CCA ratio: 0.7 RIGHT: End Diastole cm/sec ----- Right CCA: 33.5 ----- Right ICA: 34.4 ----- Right ECA: 21.7 LEFT: Peak Systolic Velocity (PSV) cm/sec ----- Left CCA: 117 ----- Left ICA: 117 ----- Left ECA: 171 ICA/CCA ratio: 1.0 LEFT: End Diastole cm/sec ----- Left CCA: 35.3 ----- Left ICA: 45.3 ----- Left ECA: 28.1 VERTEBRALS (direction of flow): Right Vertebral: Antegrade Left Vertebral: Antegrade Rhythm: Normal SEWAGE SCREEN OPERATOR NOTES: No significant stenosis seen IMPRESSION: No ultrasound evidence for hemodynamically significant stenosis of the bilateral internal carotid art eries. Criteria for Assigning % of Stenosis / Diameter reduction (Estimation based on the indirect measurements of the internal carotid artery velocities (ICA PSV). 1. Normal (no stenosis)=ICA PSV < 125 cm/s: ratio < 2.0: ICA EDV<40 cm/s. 2. Less than 50% stenosis=ICA PSV < 125 cm/s: ratio < 2.0: ICA EDV<40 cm/s. 3. 50 to 69% stenosis=ICA PSV of 125 to 230 cm/s: ration 2.0 ? 4.0: ICA EDV 40-100 cm/s. 4. Greater than 70% stenosis to near occlusion= ICA PSV > 230 cm/s: ratio > 4.0: ICA EDV > 100 cm/s. 5. Near occlusion= ICA PSV velocities may be low or undetectable: variable ratio and ICA EDV. 6. Total occlusion=unable to detect flow.
--- NOTE | 2022-07-21 16:31 | US ---
EXAMINATION TYPE: US arterial LE multi level DATE OF EXAM: 07/21/2022 3:39 PM CLINICAL INDICATION: Male, 47 years old with history of R42 Dizziness; Dizzy History of: Smoker: Current Smoker Hypertension: Yes Diabetic: No Hyperlipidemia: Yes TIA/CVA: No Previous Vascular Surgery: No CAD: No OR: No Vascular Ulcers: No Claudication: No Gangrene: No Doppler Waveforms: Right: Multiphasic throughout except for monophasic waveforms in the digit. Left: Multiphasic throughout except for monophasic waveforms in the digit. Ankle-Brachial Indices: Right: 1.20 Left: 1.31 Toe Brachial Indices: Right: 0.97 Left: 1.01 IMPRESSION: Normal ROSALIA and TBI bilaterally. No evidence for significant peripheral arterial disease.
== END | disposition home or self-care (01) ==
LOC: RADUSWWP 12:10
PROVIDERS: ATTEND Family Medicine
DX: R42 Dizziness and giddiness (principal)
CPT/HCPCS: 93880; 93923

== ENCOUNTER → 2023-08-26 | Outpatient (CLI) | payer OTHER ==
--- NOTE | 2023-08-27 10:21 | CT ---
EXAMINATION TYPE: CT foot LT wo con CT DLP: 212 mGycm, Automated exposure control for dose reduction was used. DATE OF EXAM: 08/26/2023 12:35 PM COMPARISON: None CLINICAL INDICATION:Male, 48 years old with history of M79.672 PAIN IN LEFT FOOT; PHH, PAIN IN LT BILL T. SWELLING AT NIGHT. SX FUSED JOINT IN APRIL. TECHNIQUE: Axial images were obtained of the left foot without the use of IV contrast. Additional co chuy and sagittal reformatted images and soft tissue and bone window were obtained for review. 3-D r econstruction was created on a separate workstation. FINDINGS: There is no evidence of acute fracture, subluxation, or dislocation. Postsurgical changes i nvolving the first MTP joint fusion. Hardware appears intact with appropriate alignment. No surroundi ng lucency to suggest loosening. There is osseous nonfusion of the joint at this moment. Normal bone mineralization. Incidental os trigonum. Ankle joint appears intact. No osseous erosions. No joint eff usion identified. There is some mild soft tissue swelling involving the first digit. No organized flu id collection identified. No unexpected radiopaque foreign body identified. IMPRESSION: 1. Postsurgical changes from first MTP joint fusion. Hardware appears intact. No osseous fusion at th is time. Mild surrounding soft tissues edema. 2. No evidence for acute fracture or dislocation.
== END | disposition home or self-care (01) ==
LOC: RADCTMAIN 10:54
PROVIDERS: ATTEND Podiatrist Foot & Ankle Surgery
DX: M96.89 Other intraoperative and postprocedural complications and disorders of the musculoskeletal system (principal); M20.22 Hallux rigidus, left foot; Z98.890 Other specified postprocedural states; F12.90 Cannabis use, unspecified, uncomplicated; M77.52 Other enthesopathy of left foot and ankle; R60.0 Localized edema; Z98.1 Arthrodesis status

== ENCOUNTER → 2023-09-17 | Outpatient (CLI) | payer OTHER | END | disposition home or self-care (01) | LOC: LABPRL 13:55 | PROVIDERS: ATTEND Family Medicine | CPT/HCPCS: 80053; 80061; 85025 ==